=== PATIENT | male | born 1945 | race Caucasian/White ===

== ENCOUNTER 2024-09-26 14:07 | Emergency (ER) | payer OTHER ==
[2024-09-26 14:35] VITALS: BP 115/53; PULSE 80; RESP 18; TEMP 97.9; BMI 27.2
[2024-09-26] MEDS ORDERED: DIPHTH,PERTUSS(ACELL),TET 0.5 ML DISP.SYRIN IM ONE (14:59)
[2024-09-26] MEDS: DIPHTH,PERTUSS(ACELL),TET 0.5 ML DISP.SYRIN IM ONE (15:07)
[2024-09-26 22:50] LABS: HIV INTERPRETATION NEGATIVE (NEGATIVE)
== END 2024-09-26 20:51 | disposition home or self-care (01) ==
LOC: JER 14:07
PROC: 3E0234Z Introduction of Serum, Toxoid and Vaccine into Muscle, Percutaneous Approach (ICD-10-PCS; principal; 2024-09-26)
DX: S01.81XA Laceration without foreign body of other part of head, initial encounter (principal); Z23 Encounter for immunization; W01.198A Fall on same level from slipping, tripping and stumbling with subsequent striking against other object, initial encounter
CPT/HCPCS: 36415; 70450-TC; 72125-TC; 73560-TC-LT-FY; 86803; 87389; 90471; 90715; 99284-25

== ENCOUNTER 2025-04-06 20:22 | Observation (INO) | payer OTHER ==
[2025-04-06] MEDS ORDERED: dilTIAZem HCL 125 MG/25 ML - 25 ML VIAL ONE ×2 (20:43→21:05)
[2025-04-06] MEDS: dilTIAZem HCL 50 MG/10 ML - 10 ML VIAL IVPUSH ONE ×2 (20:54→21:07)
[2025-04-06 21:10] LABS: ABSOLUTE IMMATURE GRANULOCYTES 0.01 x10^3/uL (0.0-0.031); BASOPHILS # 0.06 x10^3/uL (0.01-0.08); EOSINOPHIL % 0.8 % (0.8-7.0); EOSINOPHILS # 0.05 x10^3/uL (0.04-0.54); MCHC 32.1 g/dl (32.3-36.5); MEAN CELL VOLUME 88.1 fl (79.0-92.2); MEAN PLT VOLUME 9.5 fl (9.4-12.4); MONOCYTE # 0.53 x10^3/uL (0.30-0.82); MONOCYTE % 8.8 % (5.3-12.2); RDW 13.7 % (12.6-16.6)
[2025-04-06 21:20] LABS: CO2 21.0 mmol/L (21-32); GLUCOSE,RANDOM 103.0 mg/dL (74-106)
[2025-04-06 21:23] LABS: CREATININE 1.5 mg/dL (0.55-1.3); SGOT/AST 16.0 U/L (15-37); SGPT/ALT 12.0 U/L (13-61)
[2025-04-06 21:25] LABS: TOT PROT 6.5 g/dl (6.4-8.2)
[2025-04-06 21:26] LABS: ALK PHOS 86.0 U/L (45-117)
[2025-04-06] MEDS ORDERED: APIXABAN 2.5 MG TABLET ONE (22:06)
[2025-04-06] MEDS: APIXABAN 2.5 MG TABLET PO SCH (22:08)
[2025-04-06 22:11] LABS: INR 1.17 (0.83-1.09); PROTHROMBIN TIME (PATIENT) 12.7 SEC (9.7-13.0)
[2025-04-06 22:14] LABS: ACTIVATED PTT 28.6 SECONDS (25.2-36.5)
[2025-04-06] MEDS: FOLIC ACID INJECTION - 1 MG, THIAMINE HCL 100 MG, MULTIVIT INJECTION ADULT 10 ML in SOD... IVPB ONE (22:49)
[2025-04-07 04:49] LABS: HIV INTERPRETATION NEGATIVE (NEGATIVE)
[2025-04-07 06:55] LABS: MCHC 31.7 g/dl (32.3-36.5); MEAN CELL VOLUME 90.0 fl (79.0-92.2); MEAN PLT VOLUME 9.8 fl (9.4-12.4); RDW 13.7 % (12.6-16.6)
[2025-04-07 07:09] LABS: INR 1.3 (0.83-1.09); PROTHROMBIN TIME (PATIENT) 14.2 SEC (9.7-13.0)
[2025-04-07 07:14] LABS: CO2 23.0 mmol/L (21-32); GLUCOSE,RANDOM 101.0 mg/dL (74-106)
[2025-04-07 07:17] LABS: CREATININE 1.5 mg/dL (0.55-1.3)
[2025-04-07] MEDS ORDERED: APIXABAN 5 MG TABLET PO SCH (10:00)
[2025-04-07] MEDS: ATORVASTATIN CA 10 MG TABLET (FP) PO SCH (21:21)
[2025-04-07 21:52] LABS: HCV DIAGNOSTIC IN-HOUSE W/RFLX NON-REACTIVE (NONREACTIVE)
[2025-04-08 05:36] VITALS: RESP 18
[2025-04-08 07:40] LABS: CO2 23.0 mmol/L (21-32); GLUCOSE,RANDOM 95.0 mg/dL (74-106)
[2025-04-08 07:47] LABS: CREATININE 1.6 mg/dL (0.55-1.3)
[2025-04-08 09:51] VITALS: BP 121/79; PULSE 88; TEMP 98.8
[2025-04-08 15:53] VITALS: BMI 27.2
== END 2025-04-08 17:08 | disposition home health service (06) ==
LOC: JER 20:22 → JERBED 21:31 → J4W 23:36
PROVIDERS: ADMIT Hospitalist; ATTEND Internal Medicine
PROC: 3E033GC Introduction of Other Therapeutic Substance into Peripheral Vein, Percutaneous Approach (ICD-10-PCS; principal; 2025-04-06)
DX: I48.91 Unspecified atrial fibrillation (principal); E78.5 Hyperlipidemia, unspecified; Z85.46 Personal history of malignant neoplasm of prostate; Z87.891 Personal history of nicotine dependence; Z91.148 Patient's other noncompliance with medication regimen for other reason
CPT/HCPCS: 36415; 71045-TC-FY; 80048; 80053; 83735; 84100; 84443; 84479; 84484; 85025; 85027; 85610; 85730; 86803; 87389; 93005; 93010; 93306-TC; 96365; 96375; 97116-GP; 97161-GP; 99285-25; G0378